=== PATIENT | male | born 1985 | race Caucasian/White ===

== ENCOUNTER 2023-01-13 10:11 | Inpatient (IN) | payer OTHER ==
[2023-01-13 10:41] VITALS: BMI 27.7
[2023-01-13] MEDS ORDERED: BUPRENORPHINE HCL 150 MCG, BUPRENORPHINE HCL 75 MCG BC PRN (12:54)
[2023-01-13] MEDS ORDERED: IBUPROFEN 400 MG TABLET (FP) PO PRN (12:55)
[2023-01-13] MEDS ORDERED: BISMUTH SUBSALICYLATE 524 MG/30 ML PO PRN (12:55)
[2023-01-13] MEDS ORDERED: BENZOCAINE/MENTHOL (CHLORASEPTIC ) LOZENGE MM PRN (12:55)
[2023-01-13] MEDS ORDERED: MAG HYDROX/AL HYDROX/SIMETH 30 ML UNIT-DOSE CUP PO PRN (12:55)
[2023-01-13] MEDS ORDERED: NALOXONE HCL (KLOXXADO) 8 MG SPRAY NS PRN (12:55)
[2023-01-13] MEDS ORDERED: POLYETHYLENE GLYCOL (HEALTHYLAX) 3350 17 GM PACKET PO PRN (12:55)
[2023-01-13] MEDS ORDERED: ONDANSETRON *ODT* 4 MG TABLET SL PRN (12:55)
[2023-01-13] MEDS ORDERED: DICYCLOMINE HCL 10 MG CAPSULE PO PRN (12:55)
[2023-01-13] MEDS ORDERED: ACETAMINOPHEN 325 MG TABLET (FP) PO PRN (12:55)
[2023-01-13] MEDS ORDERED: MAGNESIUM HYDROX 2400MG/30ML ORAL SUSPENSION 30 ML CUP PO PRN (12:55)
[2023-01-13] MEDS ORDERED: cloNIDine HCL 0.1 MG TABLET PO ONE (13:15)
[2023-01-13] MEDS ORDERED: BUPRENORPHINE HCL 150 MCG, BUPRENORPHINE HCL 75 MCG BC ONE (13:15)
[2023-01-13] MEDS: hydrOXYzine PAMOATE 25 MG CAPSULE (FP) PO PRN (18:53)
[2023-01-13] MEDS: diazePAM 5 MG TABLET PO PRN (18:53)
[2023-01-13] MEDS: METHOCARBAMOL 500 MG TABLET PO PRN (18:53)
[2023-01-13] MEDS: MELATONIN 5 MG TABLETS PO SCH (22:30)
[2023-01-13] MEDS: THIAMINE HCL 100 MG TABLET (FP) PO SCH (22:30)
[2023-01-14] MEDS ORDERED: BUPRENORPHINE HCL 150 MCG, BUPRENORPHINE HCL 75 MCG BC PRN
[2023-01-14] MEDS: hydrOXYzine PAMOATE 25 MG CAPSULE (FP) PO PRN ×2 (04:51→21:01)
[2023-01-14] MEDS: METHOCARBAMOL 500 MG TABLET PO PRN ×3 (04:52→21:02)
[2023-01-14] MEDS: BUPRENORPHINE HCL 150 MCG, BUPRENORPHINE HCL 75 MCG BC SCH ×2 (05:13→17:40)
[2023-01-14] MEDS: IBUPROFEN 600 MG TABLET (FP) PO PRN (10:06)
[2023-01-14] MEDS: diazePAM 5 MG TABLET PO PRN ×2 (10:06→21:02)
[2023-01-14] MEDS: PRENATAL VITAMINS W/ FOLIC ACID TABLET (FP) PO SCH (10:06)
[2023-01-14 13:15] LABS: HEMATOCRIT 44.8 % (35.4-49); HEMOGLOBIN 15.5 GM/dL (11.7-16.9); MCH 29.7 pg (25.7-33.7); MCHC 34.5 g/dl (32.0-35.9); MEAN CELL VOLUME 85.9 fl (80-96); MEAN PLT VOLUME 7.3 fl (7.5-11.1); PLATELET COUNT 234 10^3/uL (134-434); RBC 5.21 M/mm3 (4.00-5.60); RDW 12.9 % (11.9-15.9); WHITE BLOOD COUNT 3.4 K/mm3 (4.0-10.0)
[2023-01-14 13:30] LABS: BLOOD UREA NITROGEN 17.8 mg/dL (7-18)
[2023-01-14 13:31] LABS: ALBUMIN 3.6 g/dl (3.4-5.0); CALCIUM 9.1 mg/dL (8.5-10.1)
[2023-01-14 13:33] LABS: CREATININE 0.8 mg/dL (0.55-1.3)
[2023-01-14 13:35] LABS: BILIRUBIN,TOTAL 0.7 mg/dL (0.2-1); TOT PROT 6.7 g/dl (6.4-8.2)
[2023-01-14 14:21] LABS: SYPHILIS W/ RPR CONF NON-REACTIVE (NONREACTIVE)
[2023-01-14 14:48] LABS: HIV INTERPRETATION NEGATIVE (NEGATIVE)
[2023-01-14] MEDS: THIAMINE HCL 100 MG TABLET (FP) PO SCH (21:01)
[2023-01-14] MEDS: MELATONIN 5 MG TABLETS PO SCH (21:01)
[2023-01-14] MEDS: NICOTINE 10 MG CARTRIDGE (INHALER) IH PRN (21:04)
[2023-01-15] MEDS: cloNIDine HCL 0.1 MG TABLET PO PRN ×3 (01:08→17:33)
[2023-01-15] MEDS: BUPRENORPHINE HCL 450 MCG FILM BC SCH ×2 (05:24→17:30)
[2023-01-15] MEDS: diazePAM 5 MG TABLET PO PRN (08:54)
[2023-01-15] MEDS: METHOCARBAMOL 500 MG TABLET PO PRN ×2 (08:54→21:04)
[2023-01-15] MEDS: PRENATAL VITAMINS W/ FOLIC ACID TABLET (FP) PO SCH (10:17)
[2023-01-15] MEDS: MELATONIN 5 MG TABLETS PO SCH (21:02)
[2023-01-15] MEDS: THIAMINE HCL 100 MG TABLET (FP) PO SCH (21:04)
[2023-01-15] MEDS: hydrOXYzine PAMOATE 25 MG CAPSULE (FP) PO PRN (21:04)
[2023-01-16] MEDS: cloNIDine HCL 0.1 MG TABLET PO PRN ×2 (04:21→22:32)
[2023-01-16] MEDS: ACETAMINOPHEN 325 MG TABLET (FP) PO PRN (04:21)
[2023-01-16] MEDS: METHOCARBAMOL 500 MG TABLET PO PRN ×3 (04:21→16:45)
[2023-01-16] MEDS: BUPRENORPHINE/NALOXONE 4 MG/1 MG FILM PACKET SL SCH ×2 (06:18→17:16)
[2023-01-16] MEDS: NICOTINE 10 MG CARTRIDGE (INHALER) IH PRN ×2 (10:10→21:20)
[2023-01-16] MEDS: LOPERAMIDE HCL 2 MG CAPSULE PO PRN ×3 (10:13→23:21)
[2023-01-16] MEDS: hydrOXYzine PAMOATE 25 MG CAPSULE (FP) PO PRN ×2 (10:13→22:32)
[2023-01-16] MEDS: PRENATAL VITAMINS W/ FOLIC ACID TABLET (FP) PO SCH (10:14)
[2023-01-16] MEDS: MELATONIN 5 MG TABLETS PO SCH (22:31)
[2023-01-16] MEDS: THIAMINE HCL 100 MG TABLET (FP) PO SCH (22:31)
[2023-01-17] MEDS ORDERED: BUPRENORPHINE/NALOXONE 8 MG/2 MG FILM PACKET SL ONE (06:00)
[2023-01-17] MEDS: PRENATAL VITAMINS W/ FOLIC ACID TABLET (FP) PO SCH (10:10)
[2023-01-17] MEDS: NICOTINE 10 MG CARTRIDGE (INHALER) IH PRN ×2 (10:11→21:14)
[2023-01-17] MEDS: hydrOXYzine PAMOATE 25 MG CAPSULE (FP) PO PRN ×2 (10:11→17:44)
[2023-01-17] MEDS: LOPERAMIDE HCL 2 MG CAPSULE PO PRN ×2 (10:12→17:47)
[2023-01-17] MEDS ORDERED: TUBERCULIN PPD 5 TU/0.1ML VIAL ID ONE (17:37)
[2023-01-17] MEDS: MELATONIN 5 MG TABLETS PO SCH (21:14)
[2023-01-17] MEDS: THIAMINE HCL 100 MG TABLET (FP) PO SCH (21:14)
[2023-01-17] MEDS: METHOCARBAMOL 500 MG TABLET PO PRN (21:15)
[2023-01-18] MEDS: LOPERAMIDE HCL 2 MG CAPSULE PO PRN (06:17)
[2023-01-18] MEDS: hydrOXYzine PAMOATE 25 MG CAPSULE (FP) PO PRN ×2 (06:17→21:15)
[2023-01-18] MEDS: PRENATAL VITAMINS W/ FOLIC ACID TABLET (FP) PO SCH (09:42)
[2023-01-18] MEDS ORDERED: BUPRENORPHINE/NALOXONE 8 MG/2 MG FILM PACKET SL ONE (15:10)
[2023-01-18] MEDS: NICOTINE 10 MG CARTRIDGE (INHALER) IH PRN (15:33)
[2023-01-18] MEDS: THIAMINE HCL 100 MG TABLET (FP) PO SCH (21:15)
[2023-01-18] MEDS: METHOCARBAMOL 500 MG TABLET PO PRN (21:15)
[2023-01-18] MEDS: MELATONIN 5 MG TABLETS PO SCH (21:15)
[2023-01-18] MEDS: BUPRENORPHINE/NALOXONE 8 MG/2 MG FILM PACKET SL SCH (21:17)
[2023-01-19] MEDS: PRENATAL VITAMINS W/ FOLIC ACID TABLET (FP) PO SCH (09:43)
[2023-01-19] MEDS: BUPRENORPHINE/NALOXONE 8 MG/2 MG FILM PACKET SL SCH ×2 (09:43→21:30)
[2023-01-19] MEDS: hydrOXYzine PAMOATE 25 MG CAPSULE (FP) PO PRN ×2 (09:44→21:30)
[2023-01-19] MEDS ORDERED: COLLOIDAL OATMEAL 1 BAR EACH TP PRN (11:06)
[2023-01-19] MEDS: NICOTINE 10 MG CARTRIDGE (INHALER) IH PRN ×2 (15:21→21:29)
[2023-01-19] MEDS: MELATONIN 5 MG TABLETS PO SCH (21:30)
[2023-01-19] MEDS: THIAMINE HCL 100 MG TABLET (FP) PO SCH (21:30)
[2023-01-20] MEDS: hydrOXYzine PAMOATE 25 MG CAPSULE (FP) PO PRN (08:39)
[2023-01-20] MEDS: PRENATAL VITAMINS W/ FOLIC ACID TABLET (FP) PO SCH (10:12)
[2023-01-20] MEDS: BUPRENORPHINE/NALOXONE 8 MG/2 MG FILM PACKET SL SCH ×2 (10:12→21:09)
[2023-01-20] MEDS: IBUPROFEN 600 MG TABLET (FP) PO PRN (10:13)
[2023-01-20] MEDS: NICOTINE 10 MG CARTRIDGE (INHALER) IH PRN ×2 (16:25→21:10)
[2023-01-20] MEDS: MELATONIN 5 MG TABLETS PO SCH (21:08)
[2023-01-20] MEDS: THIAMINE HCL 100 MG TABLET (FP) PO SCH (21:08)
[2023-01-21] MEDS: hydrOXYzine PAMOATE 25 MG CAPSULE (FP) PO PRN ×2 (08:30→15:37)
[2023-01-21] MEDS: BUPRENORPHINE/NALOXONE 8 MG/2 MG FILM PACKET SL SCH ×2 (09:43→21:39)
[2023-01-21] MEDS: PRENATAL VITAMINS W/ FOLIC ACID TABLET (FP) PO SCH (09:43)
[2023-01-21] MEDS: LIDOCAINE 5% TOPICAL PATCH TP SCH (10:32)
[2023-01-21] MEDS: MELATONIN 5 MG TABLETS PO SCH (21:38)
[2023-01-21] MEDS: THIAMINE HCL 100 MG TABLET (FP) PO SCH (21:38)
[2023-01-21] MEDS: METHYL SALICYLATE/MENTHOL OINT 30 GM TUBE TP SCH (21:39)
[2023-01-21] MEDS: LIDOCAINE PATCH REMOVAL MC SCH (21:39)
[2023-01-22] MEDS: PRENATAL VITAMINS W/ FOLIC ACID TABLET (FP) PO SCH (09:06)
[2023-01-22] MEDS: hydrOXYzine PAMOATE 25 MG CAPSULE (FP) PO PRN ×3 (09:06→21:12)
[2023-01-22] MEDS: LIDOCAINE 5% TOPICAL PATCH TP SCH (09:06)
[2023-01-22] MEDS: BUPRENORPHINE/NALOXONE 8 MG/2 MG FILM PACKET SL SCH ×2 (09:07→21:12)
[2023-01-22] MEDS: NICOTINE 10 MG CARTRIDGE (INHALER) IH PRN ×2 (17:06→21:14)
[2023-01-22] MEDS: METHYL SALICYLATE/MENTHOL OINT 30 GM TUBE TP SCH (21:11)
[2023-01-22] MEDS: LIDOCAINE PATCH REMOVAL MC SCH (21:11)
[2023-01-22] MEDS: THIAMINE HCL 100 MG TABLET (FP) PO SCH (21:11)
[2023-01-22] MEDS: METHOCARBAMOL 500 MG TABLET PO PRN (21:12)
[2023-01-22] MEDS ORDERED: SUVOREXANT 10 MG TABLET PO PRN (22:00)
[2023-01-23] MEDS: hydrOXYzine PAMOATE 25 MG CAPSULE (FP) PO PRN ×3 (06:28→21:11)
[2023-01-23] MEDS: LIDOCAINE 5% TOPICAL PATCH TP SCH (09:36)
[2023-01-23] MEDS: BUPRENORPHINE/NALOXONE 8 MG/2 MG FILM PACKET SL SCH ×2 (09:36→21:11)
[2023-01-23] MEDS: PRENATAL VITAMINS W/ FOLIC ACID TABLET (FP) PO SCH (09:36)
[2023-01-23] MEDS: METHOCARBAMOL 500 MG TABLET PO PRN ×2 (09:38→21:11)
[2023-01-23] MEDS: NICOTINE 10 MG CARTRIDGE (INHALER) IH PRN ×2 (09:38→21:10)
[2023-01-23] MEDS: IBUPROFEN 600 MG TABLET (FP) PO PRN (15:32)
[2023-01-23] MEDS: THIAMINE HCL 100 MG TABLET (FP) PO SCH (21:11)
[2023-01-23] MEDS: METHYL SALICYLATE/MENTHOL OINT 30 GM TUBE TP SCH (21:53)
[2023-01-23] MEDS: LIDOCAINE PATCH REMOVAL MC SCH (22:01)
[2023-01-24] MEDS: hydrOXYzine PAMOATE 25 MG CAPSULE (FP) PO PRN ×4 (06:28→21:21)
[2023-01-24] MEDS: METHOCARBAMOL 500 MG TABLET PO PRN ×2 (09:45→21:21)
[2023-01-24] MEDS: BUPRENORPHINE/NALOXONE 8 MG/2 MG FILM PACKET SL SCH ×2 (09:45→21:21)
[2023-01-24] MEDS: PRENATAL VITAMINS W/ FOLIC ACID TABLET (FP) PO SCH (09:45)
[2023-01-24] MEDS: LIDOCAINE 5% TOPICAL PATCH TP SCH (09:46)
[2023-01-24] MEDS: NICOTINE 10 MG CARTRIDGE (INHALER) IH PRN ×2 (09:46→21:23)
[2023-01-24] MEDS: IBUPROFEN 600 MG TABLET (FP) PO PRN (15:35)
[2023-01-24] MEDS: THIAMINE HCL 100 MG TABLET (FP) PO SCH (21:21)
[2023-01-24] MEDS: LIDOCAINE PATCH REMOVAL MC SCH (21:21)
[2023-01-24] MEDS: METHYL SALICYLATE/MENTHOL OINT 30 GM TUBE TP SCH (21:22)
[2023-01-25] MEDS: hydrOXYzine PAMOATE 25 MG CAPSULE (FP) PO PRN ×3 (06:24→21:07)
[2023-01-25] MEDS: ACETAMINOPHEN 325 MG TABLET (FP) PO PRN (06:24)
[2023-01-25] MEDS: PRENATAL VITAMINS W/ FOLIC ACID TABLET (FP) PO SCH (09:55)
[2023-01-25] MEDS: BUPRENORPHINE/NALOXONE 8 MG/2 MG FILM PACKET SL SCH ×2 (09:56→14:35)
[2023-01-25] MEDS: LIDOCAINE 5% TOPICAL PATCH TP SCH (09:56)
[2023-01-25] MEDS: METHOCARBAMOL 500 MG TABLET PO PRN ×2 (09:58→21:07)
[2023-01-25] MEDS: IBUPROFEN 600 MG TABLET (FP) PO PRN (09:58)
[2023-01-25] MEDS: NICOTINE 10 MG CARTRIDGE (INHALER) IH PRN ×3 (09:59→21:09)
[2023-01-25] MEDS ORDERED: BUPRENORPHINE/NALOXONE 8 MG/2 MG FILM PACKET SL SCH (13:59)
[2023-01-25] MEDS: METHYL SALICYLATE/MENTHOL OINT 30 GM TUBE TP SCH (21:07)
[2023-01-25] MEDS: THIAMINE HCL 100 MG TABLET (FP) PO SCH (21:07)
[2023-01-25] MEDS: LIDOCAINE PATCH REMOVAL MC SCH (21:07)
[2023-01-25] MEDS ORDERED: SUVOREXANT 10 MG TABLET PO PRN (22:00)
[2023-01-25] MEDS: BUPRENORPHINE/NALOXONE 4 MG/1 MG FILM PACKET SL SCH (22:32)
[2023-01-26] MEDS: BUPRENORPHINE/NALOXONE 8 MG/2 MG FILM PACKET SL SCH ×2 (06:24→14:19)
[2023-01-26] MEDS: NICOTINE 10 MG CARTRIDGE (INHALER) IH PRN ×3 (06:27→21:42)
[2023-01-26] MEDS: hydrOXYzine PAMOATE 25 MG CAPSULE (FP) PO PRN ×4 (06:46→21:41)
[2023-01-26] MEDS: METHOCARBAMOL 500 MG TABLET PO PRN ×3 (06:46→21:41)
[2023-01-26 07:06] VITALS: RESP 18
[2023-01-26] MEDS: LIDOCAINE 5% TOPICAL PATCH TP SCH (09:43)
[2023-01-26] MEDS: PRENATAL VITAMINS W/ FOLIC ACID TABLET (FP) PO SCH (09:43)
[2023-01-26] MEDS: IBUPROFEN 600 MG TABLET (FP) PO PRN (09:48)
[2023-01-26] MEDS: BUPRENORPHINE/NALOXONE 4 MG/1 MG FILM PACKET SL SCH (21:41)
[2023-01-26] MEDS: THIAMINE HCL 100 MG TABLET (FP) PO SCH (21:41)
[2023-01-26] MEDS ORDERED: BUPRENORPHINE/NALOXONE 4 MG/1 MG FILM PACKET SL SCH (22:00)
[2023-01-26] MEDS ORDERED: SUVOREXANT 15 MG TABLET PO PRN (22:00)
[2023-01-26] MEDS: METHYL SALICYLATE/MENTHOL OINT 30 GM TUBE TP SCH (23:11)
[2023-01-26] MEDS: LIDOCAINE PATCH REMOVAL MC SCH (23:12)
[2023-01-27] MEDS: hydrOXYzine PAMOATE 25 MG CAPSULE (FP) PO PRN ×3 (06:17→21:18)
[2023-01-27] MEDS: METHOCARBAMOL 500 MG TABLET PO PRN ×2 (06:17→21:18)
[2023-01-27] MEDS: BUPRENORPHINE/NALOXONE 8 MG/2 MG FILM PACKET SL SCH ×2 (06:17→13:03)
[2023-01-27 06:36] VITALS: TEMP 97.7
[2023-01-27] MEDS: PRENATAL VITAMINS W/ FOLIC ACID TABLET (FP) PO SCH (09:49)
[2023-01-27] MEDS: LIDOCAINE 5% TOPICAL PATCH TP SCH (09:49)
[2023-01-27] MEDS: NICOTINE 10 MG CARTRIDGE (INHALER) IH PRN ×3 (09:50→21:22)
[2023-01-27] MEDS: METHYL SALICYLATE/MENTHOL OINT 30 GM TUBE TP SCH (21:18)
[2023-01-27] MEDS: LIDOCAINE PATCH REMOVAL MC SCH (21:18)
[2023-01-27] MEDS: THIAMINE HCL 100 MG TABLET (FP) PO SCH (21:18)
[2023-01-27] MEDS: BUPRENORPHINE/NALOXONE 4 MG/1 MG FILM PACKET SL SCH (21:18)
[2023-01-27] MEDS: SUVOREXANT 10 MG TABLET PO PRN (21:21)
[2023-01-28] MEDS: BUPRENORPHINE/NALOXONE 8 MG/2 MG FILM PACKET SL SCH ×2 (06:18→13:16)
[2023-01-28] MEDS: hydrOXYzine PAMOATE 25 MG CAPSULE (FP) PO PRN ×3 (06:18→21:10)
[2023-01-28] MEDS: METHOCARBAMOL 500 MG TABLET PO PRN ×2 (06:18→21:10)
[2023-01-28] MEDS: PRENATAL VITAMINS W/ FOLIC ACID TABLET (FP) PO SCH (09:48)
[2023-01-28] MEDS: LIDOCAINE 5% TOPICAL PATCH TP SCH (09:48)
[2023-01-28] MEDS: NICOTINE 10 MG CARTRIDGE (INHALER) IH PRN (14:47)
[2023-01-28] MEDS: BUPRENORPHINE/NALOXONE 4 MG/1 MG FILM PACKET SL SCH (21:10)
[2023-01-28] MEDS: THIAMINE HCL 100 MG TABLET (FP) PO SCH (21:10)
[2023-01-28] MEDS: SUVOREXANT 10 MG TABLET PO PRN (21:10)
[2023-01-28] MEDS: LIDOCAINE PATCH REMOVAL MC SCH (21:45)
[2023-01-28] MEDS: METHYL SALICYLATE/MENTHOL OINT 30 GM TUBE TP SCH (21:45)
[2023-01-29] MEDS: hydrOXYzine PAMOATE 25 MG CAPSULE (FP) PO PRN (06:24)
[2023-01-29] MEDS: BUPRENORPHINE/NALOXONE 8 MG/2 MG FILM PACKET SL SCH (06:25)
[2023-01-29] MEDS: METHOCARBAMOL 500 MG TABLET PO PRN (06:25)
[2023-01-29 06:59] VITALS: BP 120/84; PULSE 76
== END 2023-01-29 08:43 | disposition home or self-care (01) | DRG 895 ==
LOC: EDBD 10:11 → YASAS 10:11 → Y3N 12:30 → UNDODISIN 01-17 14:12 → Y3E 01-17 14:25
PROVIDERS: ADMIT Allergy & Immunology; ATTEND Surgery
PROC: HZ2ZZZZ Detoxification Services for Substance Abuse Treatment (ICD-10-PCS; 2023-01-13)
PROC: HZ42ZZZ Group Counseling for Substance Abuse Treatment, Cognitive-Behavioral (ICD-10-PCS; principal; 2023-01-17)
DX: F11.20 Opioid dependence, uncomplicated (principal); F19.280 Other psychoactive substance dependence with psychoactive substance-induced anxiety disorder; F19.282 Other psychoactive substance dependence with psychoactive substance-induced sleep disorder; F17.210 Nicotine dependence, cigarettes, uncomplicated; F43.10 Post-traumatic stress disorder, unspecified; M54.50 Low back pain, unspecified; G89.29 Other chronic pain; R20.2 Paresthesia of skin; Z62.810 Personal history of physical and sexual abuse in childhood; Z28.310 Unvaccinated for COVID-19; Z28.9 Immunization not carried out for unspecified reason
CPT/HCPCS: 36415; 80053; 85027; 86780; 87389; C9803-CS; Q0162; U0003; U0005